=== PATIENT | male | born 1990 | race Caucasian/White ===

== ENCOUNTER 2016-07-09 22:30 | Emergency (ER) | payer OTHER ==
[~2016-07-09] VITALS: Ht 165.1 cm; Wt 83.9 kg
[2016-07-09 22:30] VITALS: BP_SYST 136
[2016-07-10 00:45] VITALS: BP_SYST 136
== END 2016-07-10 00:45 ==
LOC: SED 22:30
DX: Z02.83 Encounter for blood-alcohol and blood-drug test (principal)